=== PATIENT | female | born 1935 | race Caucasian/White ===

== ENCOUNTER 2017-09-03 08:51 | Inpatient (IN) | payer MEDICARE, MEDICAID ==
[~2017-09-03] VITALS: Ht 154.9 cm; Wt 102.5 kg
[2017-09-03] MEDS ORDERED: METOPROLOL TART25 MG ORAL (09:00)
[2017-09-03 09:15] VITALS: BP 143/110
[2017-09-03 09:26] LABS: BASOPHILS % (AUTO) 0.8 % (0.0-2.0); EOSINOPHILS % (AUTO) 1.6 % (0.0-3.0); HEMATOCRIT 41.7 % (37.0-47.0); LYMPHOCYTES % (AUTO) 33.8 % (20.0-45.0); MEAN CORPUSCULAR VOLUME 91 FL (80-99); MONOCYTES % (AUTO) 7.2 % (1.0-10.0); NEUTROPHILS % (AUTO) 56.6 % (45.0-75.0); PLATELET COUNT 214 K/UL (150-450); WHITE BLOOD COUNT 4.2 K/UL (4.8-10.8)
[2017-09-03 09:50] LABS: ANION GAP 4 mmol/L (5-15); BLOOD UREA NITROGEN 13 mg/dL (7-18); CALCIUM 9.4 MG/DL (8.5-10.1); CARBON DIOXIDE 33 MMOL/L (21-32); CHLORIDE 105 MMOL/L (98-107); CREATININE 0.7 MG/DL (0.55-1.30); POTASSIUM 3.8 MMOL/L (3.5-5.1); SODIUM 142 MMOL/L (136-145)
[2017-09-03 10:05] LABS: ALANINE AMINOTRANSFERASE 14 U/L (12-78); ALBUMIN 3.4 G/DL (3.4-5.0); ALBUMIN/GLOBULIN RATIO 0.9 (1.0-2.7); ALKALINE PHOSPHATASE 79 U/L (46-116); ASPARTATE AMINO TRANSFERASE 12 U/L (15-37); BILIRUBIN,TOTAL 0.3 MG/DL (0.2-1.0); CKMB 1.8 NG/ML (0.0-3.6); CREATINE KINASE 50 U/L (26-308)
[2017-09-03 11:00] VITALS: BP 172/64
--- NOTE | 2017-09-03 12:54 | Diagnostic Imaging Report ---
Indication: Shortness of breath Technique: One view of the chest Comparison: 10/27/2007 Findings: Patient is rotated to the right. Lungs and pleural spaces are clear. The heart size is normal. Upper mediastinum is unremarkable. No significant interim change Impression: No acute process
[2017-09-03 13:00] VITALS: BP 169/74
--- NOTE | 2017-09-03 13:36 | Emergency Room Report ---
History of Present Illness General Chief Complaint: Hypertension Source: Patient Present Illness HPI Patient was at her primary physician's office earlier this morning was found to be hypertensive and sent to the emergency room Patient complains of mild headache Denies any focal weakness denies any chest pain she does have some mild shortness of breath Denies any vomiting or diarrhea Patient takes metoprolol for her hypertension Denies any change of that medication Allergies: Coded Allergies: No Known Allergies (Unverified , 09/03/17) Patient History Past Medical History: see triage record Pertinent Family History: none Last Menstrual Period: Unk Reviewed Nursing Documentation: PMH: Agreed, PSxH: Agreed Nursing Documentation-PMH Hx Hypertension: Yes Hx Pacemaker: Yes Review of Systems All Other Systems: negative except mentioned in HPI Physical Exam Vital Signs Date Time Temp Pulse Resp B/P (MAP) Pulse Ox O2 Delivery O2 Flow Rate FiO2 09/03/17 08:57 98.8 77 23 233/90 95 Room Air 09/03/17 09:15 96 Sp02 EP Interpretation: reviewed, normal General Appearance: well appearing, no apparent distress Head: normocephalic, atraumatic Eyes: bilateral eye PERRL, bilateral eye EOMI ENT: hearing grossly normal, normal pharynx, TMs + canals normal, uvula midline Neck: full range of motion, supple, no meningismus, no bony tend Respiratory: lungs clear, normal breath sounds, no rhonchi, no respiratory distress, no retraction, no accessory muscle use Cardiovascular #1: normal peripheral pulses, regular rate, rhythm, no edema, no gallop, no JVD, no murmur Gastrointestinal: normal bowel sounds, non tender, soft, no mass, no organomegaly, non-distended, no guarding, no hernia, no pulsatile mass, no rebound Genitourinary: no CVA tenderness Musculoskeletal: normal inspection Neurologic: oriented x3, responsive, 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, motor strength/ tone normal, sensory intact Psychiatric: mood/affect normal Skin: normal color, no rash, warm/dry, palpation normal Lymphatic: normal inspection, no adenopathy Medical Decision Making Diagnostic Impression: Primary Impression: Hypertensive urgency, malignant ER Course Patient is a fairly complex patient with multiple differential to consideration including but not limited to cardiac cardiopulmonary, intracranial and vascular emergencies Patient reports that she has similar headache as most mornings Has no focal findings and therefore CT imaging has not been obtained Patient's blood pressure is reacting to intervention Baseline blood work are appropriate and patient admitted for further management of hypertensive crisis Labs Test 09/03/17 09:15 White Blood Count 4.2 K/UL (4.8-10.8) Red Blood Count 4.60 M/UL (4.20-5.40) Hemoglobin 13.0 G/DL (12.0-16.0) Hematocrit 41.7 % (37.0-47.0) Mean Corpuscular Volume 91 FL (80-99) Mean Corpuscular Hemoglobin 28.3 PG (27.0-31.0) Mean Corpuscular Hemoglobin Concent 31.3 G/DL (32.0-36.0) Red Cell Distribution Width 13.0 % (11.6-14.8) Platelet Count 214 K/UL (150-450) Mean Platelet Volume 7.3 FL (6.5-10.1) Neutrophils (%) (Auto) 56.6 % (45.0-75.0) Lymphocytes (%) (Auto) 33.8 % (20.0-45.0) Monocytes (%) (Auto) 7.2 % (1.0-10.0) Eosinophils (%) (Auto) 1.6 % (0.0-3.0) Basophils (%) (Auto) 0.8 % (0.0-2.0) Sodium Level 142 MMOL/L (136-145) Potassium Level 3.8 MMOL/L (3.5-5.1) Chloride Level 105 MMOL/L (98-107) Carbon Dioxide Level 33 MMOL/L (21-32) Anion Gap 4 mmol/L (5-15) Blood Urea Nitrogen 13 mg/dL (7-18) Creatinine 0.7 MG/DL (0.55-1.30) Estimat Glomerular Filtration Rate mL/min (>60) Glucose Level 94 MG/DL (74-106) Calcium Level 9.4 MG/DL (8.5-10.1) Total Bilirubin 0.3 MG/DL (0.2-1.0) Aspartate Amino Transf (AST/SGOT) 12 U/L (15-37) Alanine Aminotransferase (ALT/SGPT) 14 U/L (12-78) Alkaline Phosphatase 79 U/L (46-116) Total Creatine Kinase 50 U/L (26-308) Creatine Kinase MB 1.8 NG/ML (0.0-3.6) Creatine Kinase MB Relative Index 3.6 Troponin I 0.000 ng/mL (0.000-0.056) Pro-B-Type Natriuretic Peptide 203 pg/mL (0-125) Total Protein 7.2 G/DL (6.4-8.2) Albumin 3.4 G/DL (3.4-5.0) Globulin 3.8 g/dL Albumin/Globulin Ratio 0.9 (1.0-2.7) EKG Diagnostic Results Rate: normal Rhythm: NSR ST Segments: no acute changes Rhythm Strip Diag. Results EP Interpretation: yes Rate: 77 Rhythm: NSR, no PVC's, no ectopy Chest X-Ray Diagnostic Results Chest X-Ray Diagnostic Results : Chest X-Ray Ordered: Yes # of Views/Limited/Complete: 1 View Indication: Chest Pain EP Interpretation: Yes Interpretation: no consolidation, no effusion, no pneumothorax, no acute cardiopulmonary disease Impression: No acute disease Electronically Signed by: Terry Vilchis DO Last Vital Signs Date Time Temp Pulse Resp B/P (MAP) Pulse Ox O2 Delivery O2 Flow Rate FiO2 09/03/17 09:26 233/90 09/03/17 09:15 77 23 Room Air 96 09/03/17 09:15 98.8 96 Status: improved Disposition: ADMITTED INPATIENT Condition: Serious Referrals: LAURO RODRÍGUEZ (PCP) TERRY VILCHIS D.O. Sep 03, 2017 13:36
[2017-09-03 15:00] VITALS: BP 180/66
[2017-09-03 15:40] VITALS: BP 180/66
--- NOTE | 2017-09-03 17:23 | History & Physical ---
History and Physical History & Physicial 82 year old patient noted to have hypertensive urgency in the office with profoundly elevated blood pressure. Patient with noted headaches but no vision change. Patient now being admitted for blood pressure control and monitoring. Active Medications: FLUTICASONE PROPIONATE 50 MCG/ACT NASAL SUSPENSION (FLUTICASONE PROPIONATE) 2 puffs qd METOPROLOL TARTRATE 50 MG ORAL TABLET (METOPROLOL TARTRATE) Take one tablet daily SINGULAIR 10 MG ORAL TABLET (MONTELUKAST SODIUM) 1 by mouth nightly at bedtime PROAIR RESPICLICK 108 (90 Base) MCG/ACT INH AEPB (ALBUTEROL SULFATE) 1-2 puffs q4 prn TRAMADOL HCL 50 MG ORAL TABLET (TRAMADOL HCL) 1 tab qd ADVAIR DISKUS 500-50 MCG/DOSE INHALATION AEROSOL POWDER BREATH ACTIVATED ( FLUTICASONE-SALMETEROL) 1 PUFF BID Current Allergies (reviewed today): No known allergies No Known Drug Allergies Past History Past Medical History (reviewed - no changes required): Hx of breast cancer Hypertension Asthma chronic rhinitis Surgical History (reviewed - no changes required): Left breast mastectomy bronchoscopy Family History (reviewed - no changes required): Father ; natural causes Mother ; Cancer 233/90 77 98.2 14 Physical WDWN NAD clear breath sounds bilaterally without rhonchi or wheeze [id number] without MRG NABS nontender no HSM no CCE nonfocal Laboratory Tests Test 09/03/17 09:15 White Blood Count 4.2 K/UL (4.8-10.8) L Red Blood Count 4.60 M/UL (4.20-5.40) Hemoglobin 13.0 G/DL (12.0-16.0) Hematocrit 41.7 % (37.0-47.0) Mean Corpuscular Volume 91 FL (80-99) Mean Corpuscular Hemoglobin 28.3 PG (27.0-31.0) Mean Corpuscular Hemoglobin Concent 31.3 G/DL (32.0-36.0) L Red Cell Distribution Width 13.0 % (11.6-14.8) Platelet Count 214 K/UL (150-450) Mean Platelet Volume 7.3 FL (6.5-10.1) Neutrophils (%) (Auto) 56.6 % (45.0-75.0) Lymphocytes (%) (Auto) 33.8 % (20.0-45.0) Monocytes (%) (Auto) 7.2 % (1.0-10.0) Eosinophils (%) (Auto) 1.6 % (0.0-3.0) Basophils (%) (Auto) 0.8 % (0.0-2.0) Sodium Level 142 MMOL/L (136-145) Potassium Level 3.8 MMOL/L (3.5-5.1) Chloride Level 105 MMOL/L (98-107) Carbon Dioxide Level 33 MMOL/L (21-32) H Anion Gap 4 mmol/L (5-15) L Blood Urea Nitrogen 13 mg/dL (7-18) Creatinine 0.7 MG/DL (0.55-1.30) Estimat Glomerular Filtration Rate mL/min (>60) Glucose Level 94 MG/DL (74-106) Calcium Level 9.4 MG/DL (8.5-10.1) Total Bilirubin 0.3 MG/DL (0.2-1.0) Aspartate Amino Transf (AST/SGOT) 12 U/L (15-37) L Alanine Aminotransferase (ALT/SGPT) 14 U/L (12-78) Alkaline Phosphatase 79 U/L (46-116) Total Creatine Kinase 50 U/L (26-308) Creatine Kinase MB 1.8 NG/ML (0.0-3.6) Creatine Kinase MB Relative Index 3.6 Troponin I 0.000 ng/mL (0.000-0.056) Pro-B-Type Natriuretic Peptide 203 pg/mL (0-125) H Total Protein 7.2 G/DL (6.4-8.2) Albumin 3.4 G/DL (3.4-5.0) Globulin 3.8 g/dL Albumin/Globulin Ratio 0.9 (1.0-2.7) L IMPRESSION hypertensive urgency Headache Asthma PLAN antihypertensives monitor and recommend hope to dc soon once blood pressure controlled resume home meds impression, plan, and exam edited and reviewed in detail care discussed with LAURO HENSON Sep 03, 2017 17:23
[2017-09-03 20:29] VITALS: BP 147/77
[2017-09-03] MEDS: Metoprolol 25mg tab ORAL SCH (22:18)
[2017-09-04] VITALS (7 sets, daily range): BP systolic 144–165; BP diastolic 70–86
[2017-09-04] MEDS: Metoprolol 25mg tab ORAL SCH (08:52)
[2017-09-04] MEDS ORDERED: Albuterol/Ipratropium 3ml neb HHN PRN (11:00)
[2017-09-04] MEDS: Albuterol/Ipratropium 3ml neb HHN SCH ×2 (11:03→15:24)
--- NOTE | 2017-09-04 16:15 | General Progress Note ---
Assessment/Plan Assessment/Plan IMPRESSION hypertensive urgency Headache Asthma PLAN antihypertensives monitor and recommend hope to dc soon once blood pressure controlled dc home compliance urged follow up for change impression, plan, and exam edited and reviewed in detail care discussed with RN Subjective Allergies: Coded Allergies: No Known Allergies (Unverified , 09/03/17) Subjective stable bp improved taking meds Objective Last 24 Hour Vital Signs Date Time Temp Pulse Resp B/P (MAP) Pulse Ox O2 Delivery O2 Flow Rate FiO2 09/04/17 15:34 78 16 99 Room Air 21 09/04/17 15:22 80 16 95 Room Air 21 09/04/17 15:22 21 09/04/17 13:22 165/79 09/04/17 13:15 82 20 165/79 95 Nasal Cannula 2.0 09/04/17 12:00 97.7 76 19 163/78 90 Room Air 09/04/17 11:12 75 16 99 Room Air 21 09/04/17 11:03 78 16 96 Room Air 21 09/04/17 11:03 21 09/04/17 09:30 83 20 144/70 95 Nasal Cannula 2.0 09/04/17 08:52 83 163/86 09/04/17 08:00 97.5 83 19 163/86 93 Nasal Cannula 2.0 09/04/17 08:00 80 09/04/17 04:00 72 09/04/17 04:00 97.4 81 20 149/78 95 Nasal Cannula 2.0 09/04/17 00:00 73 09/04/17 00:00 97.6 73 22 151/82 95 Nasal Cannula 2.0 09/03/17 22:18 90 147/77 09/03/17 20:29 98.4 90 22 147/77 96 Room Air 09/03/17 20:00 81 09/03/17 18:00 76 Intake and Output 09/03/17 09/04/17 19:00 07:00 Intake Total 700 ml 100 ml Output Total 600 ml Balance 700 ml -500 ml Intake Oral 700 ml 100 ml Output Urine Total 600 ml # Voids 1 2 Height (Feet): 5 Height (Inches): 1.00 Weight (Pounds): 226 LAURO RODRÍGUEZ Sep 04, 2017 16:15
--- NOTE | 2017-09-05 14:41 | Discharge Summary ---
Discharge Summary Hospital Course Date of Admission Sep 03, 2017 at 10:20 Date of Discharge Sep 04, 2017 at 18:25 Admitting Diagnosis Hypertensive malignancy HPI Daksha Hughes is a 82 year old female who was admitted on Sep 03, 2017 at 10: 20 for Hypertensive Malignancy Hospital Course [id number] Discharge Discharge Disposition Patient was discharged to Home (01) Discharge Diagnoses: Adriana Ortiz NP Sep 05, 2017 14:41
--- NOTE | 2017-09-05 22:45 | Discharge Summary 2 SIG ---
DATE OF ADMISSION: 09/03/2017 DATE OF DISCHARGE: 09/04/2017 BRIEF HOSPITAL COURSE: The patient is an 82-year-old female with history of hypertension, asthma, and breast cancer, who was seen in the office and was found to have profoundly elevated blood pressure with complaints of headache, but no vision change. The patient was then sent to the ER. Blood pressure was 233/90, troponin was negative. She was given hydralazine IV. She was admitted for malignant hypertensive urgency. EKG was in normal sinus rhythm and chest x-ray with no acute disease. She was admitted to telemetry. She was given metoprolol 25 mg b.i.d. with p.r.n. clonidine. Following day, she had better blood pressure control. She was counseled on medication compliance and was eventually discharged home. Due to rapid improvement in the patient's symptoms and negative workup, the patient was discharged home. FINAL DIAGNOSES: 1. Hypertensive urgency. 2. Headache. 3. Asthma. DISCHARGE DISPOSITION: The patient was discharged home. DISCHARGE MEDICATIONS: Refer to medication list. Continue with home medications. DISCHARGE INSTRUCTIONS: Follow up as outpatient in a week. Matthew Sutherland M.D. I have been assigned to dictate discharge summary on this account and I was not involved in the patient's management. Adriana Ortiz N.P. DR: GEOVANNY JOB#: [id number] CC: LAZARUS
--- NOTE | 2017-09-11 18:38 | Cardiology Report ---
APPROVED REPORT EKG Measurement Heart [id number] DC [id number] [id number] Normal sinus rhythm Normal ECG
== END 2017-09-04 18:25 | disposition home or self-care (01) | DRG 305 ==
LOC: EMR 09:15 → 2E 10:20 → EDBEDREQ 13:52 → 2E 15:52
DX: I16.0 Hypertensive urgency (principal); J45.909 Unspecified asthma, uncomplicated; R51 Headache; Z85.3 Personal history of malignant neoplasm of breast
CPT/HCPCS: 36415; 71045; 80053; 82550; 82553; 83880; 84484; 85025; 93005; 94640; 99285; J7620